=== PATIENT | female | born 1965 | race Two or more races ===

== ENCOUNTER 2022-09-21 07:11 | Outpatient (CLI) | payer BC | END 2022-09-21 07:12 | disposition home or self-care (01) | LOC: LAB.S 07:11 | PROVIDERS: ATTEND Naturopath | DX: Z13.228 Encounter for screening for other metabolic disorders (principal) | CPT/HCPCS: 36415; 82533 ==

== ENCOUNTER 2022-09-26 11:04 | Outpatient (CLI) | payer BC ==
[2022-09-26 14:21] LABS: BASOPHILS % (AUTO) 0.6 %; EOSINOPHILS % (AUTO) 0.4 %; HCT - HEMATOCRIT 38.5 % (37.0-47.0); HGB - HEMOGLOBIN 12.5 g/dL (12.0-16.0); LYMPHOCYTES # (AUTO) 1.4 10^3/uL (1.5-3.5); LYMPHOCYTES % (AUTO) 25.8 %; MEAN CORPUSCULAR HEMOGLOBIN 29.6 pg (27.0-31.0); MEAN CORPUSCULAR HGB CONC 32.5 g/dL (32.0-36.0); MEAN CORPUSCULAR VOLUME 91.2 fL (81.0-99.0); MEAN PLATELET VOLUME 10.6 fL (7.9-10.8); MONOCYTES # (AUTO) 0.4 10^3/uL (0.0-1.0); NEUTROPHILS # (AUTO) 3.4 10^3/uL (1.5-6.6); NEUTROPHILS % (AUTO) 64.8 %; PLT - PLATELET COUNT 252 10^3/uL (130-450); RED BLOOD COUNT 4.22 10^6/uL (4.20-5.40); RED CELL DISTRIBUTION WIDTH 12.7 % (12.0-15.0); WHITE BLOOD COUNT 5.2 x10^3/uL (4.8-10.8)
[2022-09-26 15:09] LABS: ALBUMIN 4.2 g/dL (3.2-5.5); ALBUMIN/GLOBULIN RATIO 1.4 (1.0-2.2); ALKALINE PHOSPHATASE 62 IU/L (42-121); ALT ALANINE AMINOTRANSFERASE 21 IU/L (10-60); AST ASPARTATE AMINOTRANSFERASE 24 IU/L (10-42); BILIRUBIN,TOTAL 0.5 mg/dL (0.2-1.0); BUN - BLOOD UREA NITROGEN 17 mg/dL (6-20); CARBON DIOXIDE - CO2 26 mmol/L (21-32); CHLORIDE 107 mmol/L (101-111); CHOL/HDL RATIO 2.6 (<4.4); CHOLESTEROL 234 mg/dL; CREATININE 0.7 mg/dL (0.4-1.0); GFR - MDRD 86 (>89); GLUCOSE 109 mg/dL (70-100); HDL CHOLESTEROL 91 mg/dL; LDL CHOLESTEROL,CALCULATED 129 mg/dL; LDL/HDL RATIO 1.4 (<4.4); POTASSIUM 3.9 mmol/L (3.5-5.0); SODIUM 138 mmol/L (135-145); TOTAL PROTEIN 7.2 g/dL (6.7-8.2); TRIGLYCERIDES 72 mg/dL; VLDL CHOLESTEROL 14 mg/dL
[2022-09-26 15:29] LABS: THYROID STIMULATING HORMONE 0.93 uIU/mL (0.34-5.60)
[2022-09-26 15:31] LABS: FREE T4 (FREE THYROXINE) 0.82 ng/dL (0.58-1.64)
[2022-09-26 15:33] LABS: FREE T3 2.86 pg/mL (2.5-3.9)
[2022-09-26 15:35] LABS: CRP - C-REACTIVE PROTEIN < 1.0 mg/dL (0-1.0)
[2022-09-26 15:40] LABS: FOLATE 15.78 ng/mL (5.90 - >24.8)
[2022-09-27 05:13] LABS: VITAMIN D 25-HYDROXY 39.3 ng/mL (30.0-100.0)
[2022-09-27 07:10] LABS: INSULIN 8.2 uIU/mL (2.6-24.9); PROGESTERONE 0.3 ng/mL (.)
[2022-09-27 16:27] LABS: ESTIMATED AVERAGE GLUCOSE 108 mg/dL (70-100); HEMOGLOBIN A1c% 5.4 % (4.27-6.07)
[2022-09-27 20:07] LABS: THYROGLOBULIN ANTIBODY <1.0 IU/mL (0.0-0.9); THYROID PEROXIDASE (TPO) AB <9 IU/mL (0-34)
== END 2022-09-26 11:05 | disposition home or self-care (01) ==
LOC: LAB.S 11:04
PROVIDERS: ATTEND Naturopath
DX: R53.83 Other fatigue (principal); Z13.220 Encounter for screening for lipoid disorders; Z13.1 Encounter for screening for diabetes mellitus; E55.9 Vitamin D deficiency, unspecified; Z13.228 Encounter for screening for other metabolic disorders; N95.1 Menopausal and female climacteric states
CPT/HCPCS: 36415; 80053; 80061; 82306; 82533; 82607; 82626; 82672; 82728; 82746; 83036; 83090; 83525; 83721; 84144; 84403; 84439; 84443; 84481; 85025; 86140; 86376; 86800